=== PATIENT | male | born 1980 ===

== ENCOUNTER 2021-11-30 23:23 | Emergency (ER) | payer SELFPAY ==
--- NOTE | ~2021-11-30 | XR_ITS ---
EXAMINATION: XR forearm LT 2V DATE: 12/01/2021 01:05 INDICATION: Mid left forearm pain post injury TECHNIQUE: AP an lateral views of the left forearm were obtained. COMPARISON: none FINDINGS: Alignment is normal. No fracture. Joint spaces are normal. Soft tissue swelling dorsal to the distal forearm. IMPRESSION: 1. No osseous abnormality. Reviewed, dictated and finalized at location A. IMPRESSION: 1. No osseous abnormality.
[2021-11-30 23:38] VITALS: BP 220/130; PULSE 108; RESP 17; TEMP 37.2; O2SAT 98
--- NOTE | 2021-12-01 01:32 | PC.NURSE ---
Patient states he is going home, states I can't wait any more. Patient informed of the risks of leaving before being seen by a provider. Coni ambulated out of the ED with a steady gait at 0132.
== END 2021-12-01 01:31 | disposition left against medical advice (07) ==
LOC: ANHED 12-01 01:45
PROVIDERS: Emergency Provider Emergency Medicine
DX: S59.912A Unspecified injury of left forearm, initial encounter (principal); W10.9XXA Fall (on) (from) unspecified stairs and steps, initial encounter
CPT/HCPCS: 73090; 99199